=== PATIENT | female | born 1935 | race Caucasian/White ===

== ENCOUNTER 2017-02-04 13:31 | Inpatient (IN) | payer BC, OTHER ==
[~2017-02-04] VITALS: Ht 160 cm; Wt 78.0 kg
[2017-02-04 13:31] VITALS: BP_SYST 162
[2017-02-04 14:41] LABS: BASOPHILS % (AUTO) 0.2 % (0.0-2.0); EOSINOPHILS # (AUTO) 0.1 K/uL (0.0-0.4); EOSINOPHILS % (AUTO) 0.6 % (0.0-4.0); HEMATOCRIT 42.9 % (36-48); HEMOGLOBIN 13.9 g/dL (12.0-16.0); LYMPHOCYTES # (AUTO) 0.9 K/uL (1.0-5.5); LYMPHOCYTES % (AUTO) 7.4 % (20.5-51.5); MEAN CORPUSCULAR HEMOGLOBIN 29 pg (27-31); MEAN CORPUSCULAR HGB CONC 32 % (32-36); MEAN CORPUSCULAR VOLUME 91 fL (79.0-98.0); MONOCYTES # (AUTO) 1.2 K/uL (0.0-1.0); MONOCYTES % (AUTO) 9.7 % (1.7-9.3); NEUTROPHILS # (AUTO) 9.9 K/uL (1.8-7.7); NEUTROPHILS % (AUTO) 82.1 % (40.0-70.0); PLATELET COUNT (AUTO) 141 K/uL (130-430); RED BLOOD CELL COUNT(AUTO) 4.74 MIL/uL (4.2-6.2); RED CELL DISTRIBUTION WIDTH 12.5 % (9.0-15.0); WHITE BLOOD COUNT (AUTO) 12.1 K/uL (4.8-10.8)
[2017-02-04] MEDS ORDERED: KETOROLAC TROMETHAMINE 60 MG/2 ML VIAL IM ONE (14:45)
[2017-02-04 14:52] LABS: ANION GAP 8 (5-15); CALCIUM 9.3 mg/dL (8.4-11.0); CHLORIDE 107 mmol/L (98-107); CREATININE 1.04 mg/dL (0.55-1.30); GLUCOSE 140 mg/dL (70-99); POTASSIUM 3.7 mmol/L (3.5-5.1); SODIUM SERUM 139 mmol/L (136-145); UREA NITROGEN, BLOOD 21 mg/dL (8-21)
[2017-02-04 14:57] LABS: ALANINE AMINOTRANSFERASE 24 U/L (12-78); ASPARTATE AMINOTRANSFERASE 26 U/L (10-37); TOTAL BILIRUBIN 0.6 mg/dL (0.0-1.0); TOTAL PROTEIN, SERUM 7.5 g/dL (6.4-8.3)
[2017-02-04] MEDS ORDERED: KETOROLAC TROMETHAMINE 30 MG VIAL IVP ONE (15:00)
[2017-02-04] MEDS ORDERED: NS 250 ML IV ONE (15:45)
[2017-02-04] MEDS ORDERED: BIMA2.5D6 OP (15:45)
[2017-02-04] MEDS ORDERED: CLOP75TA32 PO (15:45)
[2017-02-04] MEDS ORDERED: LISI-600 PO (15:45)
[2017-02-04] MEDS ORDERED: ATEN50TA PO (15:45)
[2017-02-04] MEDS ORDERED: CYCL5.5D OP (15:48)
[2017-02-04] MEDS ORDERED: ALPHAGANP EACH EYE (15:48)
[2017-02-04] MEDS ORDERED: TIMO5DRO16 OP (15:51)
[2017-02-04] MEDS ORDERED: PROP10DR2 EACH EYE (15:53)
[2017-02-04] MEDS ORDERED: ACETAMINOPHEN 325 MG TABLET PO PRN (16:30)
[2017-02-04] MEDS ORDERED: DOCUSATE SODIUM 100 MG CAPSULE PO PRN (16:30)
[2017-02-04] MEDS ORDERED: ONDANSETRON HCL 4 MG/2 ML VIAL IVP PRN (16:30)
[2017-02-04] MEDS ORDERED: POTASSIUM CHLORIDE 10 MEQ TAB.PRT.SR PO PRN (16:30)
[2017-02-04] MEDS ORDERED: LORazepam 2 MG/ML VIAL IVP PRN (16:30)
[2017-02-04] MEDS ORDERED: MAGNESIUM SULFATE 50 ML IV PRN (16:30)
[2017-02-04] MEDS ORDERED: ZOLPIDEM TARTRATE 5 MG TABLET PO PRN (16:30)
[2017-02-04] MEDS ORDERED: IOHEXOL 350 mgI/mL, 150 ML INFUS..BTL IV ONE (16:33)
[2017-02-04] MEDS ORDERED: *HEPARIN PER PHARMACY XX ONE (17:45)
[2017-02-04 18:00] VITALS: BP_SYST 116
[2017-02-04] MEDS ORDERED: DIA250 PO (18:30)
[2017-02-04 18:36] LABS: BILIRUBIN,URINE NEGATIVE (NEGATIVE); CLARITY/URINE CLEAR (CLEAR); COLOR,URINE YELLOW (YELLOW); GLUCOSE,URINE NEGATIVE (NEGATIVE); KETONES,URINE NEGATIVE (NEGATIVE); LEUKOCYTE ESTERASE ,URINE TRACE (NEGATIVE); NITRITE, URINE NEGATIVE (NEGATIVE); PH,URINE 6.5 (5.0-8.0); PROTEIN URINE NEGATIVE (NEGATIVE); UROBILINOGEN,URINE 0.2 (0.2-1.0)
[2017-02-04 18:37] LABS: BLOOD, URINE TRACE (NEGATIVE)
[2017-02-04 18:48] LABS: BACTERIA,URINE MODERATE /HPF (None Seen)
[2017-02-04 19:00] VITALS: BP_SYST 148
[2017-02-04] MEDS ORDERED: COMMUNICATION ORDER XX ONE (19:15)
[2017-02-04 20:43] LABS: ABG TOTAL HEMOGLOBIN 14.8 G/dL (12.0-18.0); BLOOD GAS BASE EXCESS -2.3 mmol/L (-3.0-3.0); BLOOD GAS PH 7.401 (7.350-7.450); BLOOD O2Hb% 93.9 % (94.0-97.0)
[2017-02-04 20:44] LABS: BLOOD GAS COHb% 0.2 % (0.5-1.5); BLOOD GAS HHB 5.5 % (0.0-6.0)
[2017-02-04] MEDS: cycloSPORINE 0.05%, 0.4 ML OPHTHALMIC EMULSION DROPERETTE OP SCH (21:00)
[2017-02-04] MEDS: TIMOLOL MALEATE 0.25% OPHTHALMIC DROPS 5 ML OP SCH (21:00)
[2017-02-04] MEDS: LATANOPROST 2.5 ML DROPS (XALATAN) OP SCH (21:00)
[2017-02-04] MEDS: BRIMONIDINE TARTRATE 0.2% 5 mL EYE DROPS EACH EYE SCH (21:00)
[2017-02-04] MEDS: ENOXAPARIN SODIUM 80 MG/0.8 ML SYRINGE SUBCUT SCH (22:03)
[2017-02-04] MEDS: SIMETHICONE 80 MG TAB.CHEW PO PRN (22:31)
[2017-02-04 23:53] VITALS: BP_SYST 112
[2017-02-05 03:43] VITALS: BP_SYST 142
[2017-02-05] MEDS: MORPHINE 2 MG/ML INJ. SYRINGE IVP PRN ×3 (04:18→12:58)
[2017-02-05] MEDS: SIMETHICONE 80 MG TAB.CHEW PO PRN (04:21)
[2017-02-05 06:49] LABS: BASOPHILS % (AUTO) 0.2 % (0.0-2.0); EOSINOPHILS % (AUTO) 0.3 % (0.0-4.0); HEMATOCRIT 41.1 % (36-48); HEMOGLOBIN 13.4 g/dL (12.0-16.0); LYMPHOCYTES % (AUTO) 8.1 % (20.5-51.5); MEAN CORPUSCULAR HEMOGLOBIN 30 pg (27-31); MEAN CORPUSCULAR HGB CONC 33 % (32-36); MEAN CORPUSCULAR VOLUME 92 fL (79.0-98.0); MONOCYTES # (AUTO) 1.1 K/uL (0.0-1.0); MONOCYTES % (AUTO) 8.5 % (1.7-9.3); NEUTROPHILS # (AUTO) 10.3 K/uL (1.8-7.7); NEUTROPHILS % (AUTO) 82.9 % (40.0-70.0); PLATELET COUNT (AUTO) 144 K/uL (130-430); RED BLOOD CELL COUNT(AUTO) 4.48 MIL/uL (4.2-6.2); RED CELL DISTRIBUTION WIDTH 12.7 % (9.0-15.0); WHITE BLOOD COUNT (AUTO) 12.4 K/uL (4.8-10.8)
[2017-02-05 07:04] LABS: ANION GAP 11 (5-15); CALCIUM 8.9 mg/dL (8.4-11.0); CHLORIDE 107 mmol/L (98-107); CREATININE 1.08 mg/dL (0.55-1.30); GLUCOSE 131 mg/dL (70-99); POTASSIUM 3.7 mmol/L (3.5-5.1); SODIUM SERUM 139 mmol/L (136-145); UREA NITROGEN, BLOOD 26 mg/dL (8-21)
[2017-02-05 08:00] VITALS: BP_SYST 131
[2017-02-05] MEDS: ENOXAPARIN SODIUM 80 MG/0.8 ML SYRINGE SUBCUT SCH ×2 (08:44→22:11)
[2017-02-05] MEDS: LISINOPRIL 20 MG TABLET PO SCH (08:47)
[2017-02-05] MEDS ORDERED: CLOPIDOGREL BISULFATE 75 MG TABLET PO SCH (09:00)
[2017-02-05] MEDS ORDERED: ENOXAPARIN SODIUM 40 MG/0.4 ML SYRINGE SUBCUT SCH (09:00)
[2017-02-05] MEDS: TIMOLOL MALEATE 0.25% OPHTHALMIC DROPS 5 ML OP SCH ×2 (09:16→20:41)
[2017-02-05] MEDS: BRIMONIDINE TARTRATE 0.2% 5 mL EYE DROPS EACH EYE SCH ×2 (09:21→20:48)
[2017-02-05] MEDS: cycloSPORINE 0.05%, 0.4 ML OPHTHALMIC EMULSION DROPERETTE OP SCH ×2 (09:24→20:59)
[2017-02-05] MEDS: cefTRIAXone 1 GM in D5W 50 ML IV SCH (10:36)
[2017-02-05 10:37] VITALS: BP_SYST 162
[2017-02-05 14:38] VITALS: BP_SYST 115
[2017-02-05] MEDS: IPRATROPIUM/ALBUTEROL SULFATE 3 ML AMPUL.NEB INH SCH ×2 (15:19→21:28)
[2017-02-05] MEDS: MORPHINE 4 MG/ML INJ. SYRINGE IVP PRN ×2 (16:01→20:35)
[2017-02-05 17:04] VITALS: BP_SYST 111
[2017-02-05] MEDS: LATANOPROST 2.5 ML DROPS (XALATAN) OP SCH (20:51)
[2017-02-05] MEDS: SYSTANE ULTRA EYE DROPS OP SCH (21:00)
[2017-02-06 04:00] VITALS: BP_SYST 125
[2017-02-06 07:25] LABS: BASOPHILS % (AUTO) 0.1 % (0.0-2.0); EOSINOPHILS % (AUTO) 0.3 % (0.0-4.0); HEMATOCRIT 38.8 % (36-48); HEMOGLOBIN 12.9 g/dL (12.0-16.0); LYMPHOCYTES # (AUTO) 0.8 K/uL (1.0-5.5); LYMPHOCYTES % (AUTO) 6.3 % (20.5-51.5); MEAN CORPUSCULAR HEMOGLOBIN 30 pg (27-31); MEAN CORPUSCULAR HGB CONC 33 % (32-36); MEAN CORPUSCULAR VOLUME 92 fL (79.0-98.0); MONOCYTES % (AUTO) 8.6 % (1.7-9.3); NEUTROPHILS # (AUTO) 10.1 K/uL (1.8-7.7); NEUTROPHILS % (AUTO) 84.7 % (40.0-70.0); PLATELET COUNT (AUTO) 171 K/uL (130-430); RED BLOOD CELL COUNT(AUTO) 4.24 MIL/uL (4.2-6.2); RED CELL DISTRIBUTION WIDTH 12.7 % (9.0-15.0); WHITE BLOOD COUNT (AUTO) 11.9 K/uL (4.8-10.8)
[2017-02-06] MEDS: IPRATROPIUM/ALBUTEROL SULFATE 3 ML AMPUL.NEB INH SCH ×3 (07:35→21:40)
[2017-02-06 07:53] LABS: ANION GAP 11 (5-15); CALCIUM 9.4 mg/dL (8.4-11.0); CHLORIDE 103 mmol/L (98-107); CREATININE 1.15 mg/dL (0.55-1.30); GLUCOSE 126 mg/dL (70-99); POTASSIUM 3.7 mmol/L (3.5-5.1); SODIUM SERUM 135 mmol/L (136-145); UREA NITROGEN, BLOOD 33 mg/dL (8-21)
[2017-02-06 08:00] VITALS: BP_SYST 150
[2017-02-06] MEDS: ENOXAPARIN SODIUM 80 MG/0.8 ML SYRINGE SUBCUT SCH ×2 (09:15→21:20)
[2017-02-06] MEDS: LISINOPRIL 20 MG TABLET PO SCH (09:16)
[2017-02-06] MEDS: MORPHINE 4 MG/ML INJ. SYRINGE IVP PRN ×3 (09:17→21:19)
[2017-02-06] MEDS: cefTRIAXone 1 GM in D5W 50 ML IV SCH (09:17)
[2017-02-06] MEDS: TIMOLOL MALEATE 0.25% OPHTHALMIC DROPS 5 ML OP SCH ×2 (09:22→21:24)
[2017-02-06] MEDS: BRIMONIDINE TARTRATE 0.2% 5 mL EYE DROPS EACH EYE SCH ×2 (09:23→21:24)
[2017-02-06] MEDS: cycloSPORINE 0.05%, 0.4 ML OPHTHALMIC EMULSION DROPERETTE OP SCH ×2 (09:24→21:39)
[2017-02-06] MEDS: SYSTANE ULTRA EYE DROPS OP SCH ×4 (09:26→21:35)
[2017-02-06 12:42] VITALS: BP_SYST 114
[2017-02-06] MEDS: acetaZOLAMIDE 250 MG TABLET (DIAMOX) PO SCH ×2 (12:49→21:22)
[2017-02-06 14:54] LABS: BILIRUBIN,URINE NEGATIVE (NEGATIVE); CLARITY/URINE HAZY (CLEAR); GLUCOSE,URINE NEGATIVE (NEGATIVE); KETONES,URINE NEGATIVE (NEGATIVE); LEUKOCYTE ESTERASE ,URINE NEGATIVE (NEGATIVE); NITRITE, URINE NEGATIVE (NEGATIVE); PH,URINE 5.5 (5.0-8.0); PROTEIN URINE 1+ (NEGATIVE)
[2017-02-06 14:56] LABS: BLOOD, URINE TRACE (NEGATIVE); COLOR,URINE ORANGE (YELLOW)
[2017-02-06 15:18] LABS: BACTERIA,URINE MANY /HPF (None Seen); MUCUS,URINE None Seen /LPF (None Seen); RBC,URINE 0-3 /HPF (0-3)
[2017-02-06] MEDS: SIMETHICONE 80 MG TAB.CHEW PO PRN (15:59)
[2017-02-06 16:06] VITALS: BP_SYST 136
[2017-02-06] MEDS: LATANOPROST 2.5 ML DROPS (XALATAN) OP SCH ×2 (21:00→21:29)
[2017-02-07] VITALS (8 sets, daily range): BP systolic 107–126
[2017-02-07] MEDS: MORPHINE 4 MG/ML INJ. SYRINGE IVP PRN ×5 (00:43→21:43)
[2017-02-07] MEDS: IPRATROPIUM/ALBUTEROL SULFATE 3 ML AMPUL.NEB INH SCH ×3 (07:34→21:15)
[2017-02-07 07:54] LABS: BASOPHILS % (AUTO) 0.1 % (0.0-2.0); EOSINOPHILS % (AUTO) 0.2 % (0.0-4.0); HEMATOCRIT 41.3 % (36-48); HEMOGLOBIN 13.2 g/dL (12.0-16.0); LYMPHOCYTES # (AUTO) 0.6 K/uL (1.0-5.5); MEAN CORPUSCULAR HEMOGLOBIN 30 pg (27-31); MEAN CORPUSCULAR HGB CONC 32 % (32-36); MEAN CORPUSCULAR VOLUME 93 fL (79.0-98.0); MONOCYTES # (AUTO) 0.9 K/uL (0.0-1.0); MONOCYTES % (AUTO) 9.1 % (1.7-9.3); NEUTROPHILS # (AUTO) 8.5 K/uL (1.8-7.7); NEUTROPHILS % (AUTO) 84.6 % (40.0-70.0); PLATELET COUNT (AUTO) 183 K/uL (130-430); RED BLOOD CELL COUNT(AUTO) 4.45 MIL/uL (4.2-6.2); RED CELL DISTRIBUTION WIDTH 12.8 % (9.0-15.0)
[2017-02-07 08:04] LABS: ANION GAP 9 (5-15); CALCIUM 9.6 mg/dL (8.4-11.0); CHLORIDE 102 mmol/L (98-107); GLUCOSE 124 mg/dL (70-99); SODIUM SERUM 136 mmol/L (136-145); UREA NITROGEN, BLOOD 37 mg/dL (8-21)
[2017-02-07] MEDS: ENOXAPARIN SODIUM 80 MG/0.8 ML SYRINGE SUBCUT SCH ×2 (09:20→20:35)
[2017-02-07] MEDS: cycloSPORINE 0.05%, 0.4 ML OPHTHALMIC EMULSION DROPERETTE OP SCH ×2 (09:21→20:40)
[2017-02-07] MEDS: acetaZOLAMIDE 250 MG TABLET (DIAMOX) PO SCH ×2 (09:21→20:33)
[2017-02-07] MEDS: LISINOPRIL 20 MG TABLET PO SCH (09:21)
[2017-02-07] MEDS: BRIMONIDINE TARTRATE 0.2% 5 mL EYE DROPS EACH EYE SCH ×2 (09:22→20:35)
[2017-02-07] MEDS: TIMOLOL MALEATE 0.25% OPHTHALMIC DROPS 5 ML OP SCH ×2 (09:22→20:35)
[2017-02-07] MEDS: SYSTANE ULTRA EYE DROPS OP SCH ×4 (09:23→20:41)
[2017-02-07] MEDS: cefTRIAXone 1 GM in D5W 50 ML IV SCH (09:31)
[2017-02-07] MEDS: LATANOPROST 2.5 ML DROPS (XALATAN) OP SCH (20:40)
[2017-02-08] VITALS (8 sets, daily range): BP systolic 98–143
[2017-02-08] MEDS: MORPHINE 4 MG/ML INJ. SYRINGE IVP PRN ×4 (06:05→21:35)
[2017-02-08 06:16] LABS: PROTEIN S ACTIVITY 65 % (63-140)
[2017-02-08] MEDS: IPRATROPIUM/ALBUTEROL SULFATE 3 ML AMPUL.NEB INH SCH ×3 (07:30→20:03)
[2017-02-08 07:55] LABS: ANION GAP 7 (5-15); CALCIUM 9.5 mg/dL (8.4-11.0); CHLORIDE 104 mmol/L (98-107); CREATININE 1.08 mg/dL (0.55-1.30); GLUCOSE 111 mg/dL (70-99); POTASSIUM 3.4 mmol/L (3.5-5.1); SODIUM SERUM 136 mmol/L (136-145); UREA NITROGEN, BLOOD 45 mg/dL (8-21)
[2017-02-08 08:03] LABS: BASOPHILS % (AUTO) 0.3 % (0.0-2.0); EOSINOPHILS # (AUTO) 0.2 K/uL (0.0-0.4); EOSINOPHILS % (AUTO) 2.8 % (0.0-4.0); HEMATOCRIT 40.6 % (36-48); HEMOGLOBIN 12.9 g/dL (12.0-16.0); LYMPHOCYTES # (AUTO) 0.8 K/uL (1.0-5.5); LYMPHOCYTES % (AUTO) 8.9 % (20.5-51.5); MEAN CORPUSCULAR HEMOGLOBIN 30 pg (27-31); MEAN CORPUSCULAR HGB CONC 32 % (32-36); MEAN CORPUSCULAR VOLUME 93 fL (79.0-98.0); MONOCYTES # (AUTO) 0.8 K/uL (0.0-1.0); MONOCYTES % (AUTO) 9.8 % (1.7-9.3); NEUTROPHILS # (AUTO) 6.7 K/uL (1.8-7.7); NEUTROPHILS % (AUTO) 78.2 % (40.0-70.0); PLATELET COUNT (AUTO) 240 K/uL (130-430); RED BLOOD CELL COUNT(AUTO) 4.35 MIL/uL (4.2-6.2); RED CELL DISTRIBUTION WIDTH 12.7 % (9.0-15.0); WHITE BLOOD COUNT (AUTO) 8.5 K/uL (4.8-10.8)
[2017-02-08] MEDS: cefTRIAXone 1 GM in D5W 50 ML IV SCH (09:17)
[2017-02-08] MEDS: LISINOPRIL 20 MG TABLET PO SCH (09:17)
[2017-02-08] MEDS: acetaZOLAMIDE 250 MG TABLET (DIAMOX) PO SCH ×2 (09:17→21:36)
[2017-02-08] MEDS: SIMETHICONE 80 MG TAB.CHEW PO PRN (09:17)
[2017-02-08] MEDS: ENOXAPARIN SODIUM 80 MG/0.8 ML SYRINGE SUBCUT SCH ×2 (09:17→21:35)
[2017-02-08] MEDS: TIMOLOL MALEATE 0.25% OPHTHALMIC DROPS 5 ML OP SCH ×2 (09:18→21:36)
[2017-02-08] MEDS: BRIMONIDINE TARTRATE 0.2% 5 mL EYE DROPS EACH EYE SCH ×2 (09:18→21:36)
[2017-02-08] MEDS: SYSTANE ULTRA EYE DROPS OP SCH ×4 (09:29→21:36)
[2017-02-08] MEDS ORDERED: BISACODYL 5 MG TABLET.DR (DULCOLAX) PO ONE (09:30)
[2017-02-08] MEDS ORDERED: MILK OF MAGNESIA 30 ML UDC PO ONE (09:30)
[2017-02-08] MEDS: cycloSPORINE 0.05%, 0.4 ML OPHTHALMIC EMULSION DROPERETTE OP SCH ×2 (11:08→21:00)
[2017-02-08] MEDS: LATANOPROST 2.5 ML DROPS (XALATAN) OP SCH (21:36)
[2017-02-09] MEDS: MORPHINE 4 MG/ML INJ. SYRINGE IVP PRN ×4 (03:43→21:47)
[2017-02-09 03:44] VITALS: BP_SYST 125
[2017-02-09] MEDS: SIMETHICONE 80 MG TAB.CHEW PO PRN (06:02)
[2017-02-09 06:55] LABS: BASOPHILS % (AUTO) 0.3 % (0.0-2.0); EOSINOPHILS # (AUTO) 0.2 K/uL (0.0-0.4); EOSINOPHILS % (AUTO) 2.5 % (0.0-4.0); HEMATOCRIT 39.4 % (36-48); HEMOGLOBIN 12.7 g/dL (12.0-16.0); LYMPHOCYTES # (AUTO) 0.7 K/uL (1.0-5.5); LYMPHOCYTES % (AUTO) 9.8 % (20.5-51.5); MEAN CORPUSCULAR HEMOGLOBIN 30 pg (27-31); MEAN CORPUSCULAR HGB CONC 32 % (32-36); MEAN CORPUSCULAR VOLUME 92 fL (79.0-98.0); MONOCYTES # (AUTO) 0.9 K/uL (0.0-1.0); MONOCYTES % (AUTO) 12.1 % (1.7-9.3); NEUTROPHILS # (AUTO) 5.4 K/uL (1.8-7.7); NEUTROPHILS % (AUTO) 75.3 % (40.0-70.0); PLATELET COUNT (AUTO) 236 K/uL (130-430); RED BLOOD CELL COUNT(AUTO) 4.28 MIL/uL (4.2-6.2); RED CELL DISTRIBUTION WIDTH 12.6 % (9.0-15.0); WHITE BLOOD COUNT (AUTO) 7.2 K/uL (4.8-10.8)
[2017-02-09 07:10] LABS: ANION GAP 7 (5-15); CALCIUM 9.3 mg/dL (8.4-11.0); CHLORIDE 106 mmol/L (98-107); CREATININE 1.02 mg/dL (0.55-1.30); GLUCOSE 117 mg/dL (70-99); POTASSIUM 4.3 mmol/L (3.5-5.1); SODIUM SERUM 138 mmol/L (136-145); UREA NITROGEN, BLOOD 46 mg/dL (8-21)
[2017-02-09 08:00] VITALS: BP_SYST 147
[2017-02-09] MEDS: cefTRIAXone 1 GM in D5W 50 ML IV SCH (08:59)
[2017-02-09] MEDS: LISINOPRIL 20 MG TABLET PO SCH (08:59)
[2017-02-09] MEDS: BRIMONIDINE TARTRATE 0.2% 5 mL EYE DROPS EACH EYE SCH ×2 (09:00→21:49)
[2017-02-09] MEDS: TIMOLOL MALEATE 0.25% OPHTHALMIC DROPS 5 ML OP SCH ×2 (09:00→21:48)
[2017-02-09] MEDS: SYSTANE ULTRA EYE DROPS OP SCH ×4 (09:00→21:49)
[2017-02-09] MEDS: ENOXAPARIN SODIUM 80 MG/0.8 ML SYRINGE SUBCUT SCH (09:00)
[2017-02-09] MEDS: IPRATROPIUM/ALBUTEROL SULFATE 3 ML AMPUL.NEB INH SCH ×3 (09:07→20:52)
[2017-02-09] MEDS: cycloSPORINE 0.05%, 0.4 ML OPHTHALMIC EMULSION DROPERETTE OP SCH ×2 (10:15→21:51)
[2017-02-09] MEDS ORDERED: NITR-85 PO (11:32)
[2017-02-09] MEDS ORDERED: APIX5TAB PO (11:37)
[2017-02-09 12:29] VITALS: BP_SYST 116
[2017-02-09 16:49] VITALS: BP_SYST 141
[2017-02-09 19:40] VITALS: BP_SYST 121
[2017-02-09] MEDS ORDERED: APIXABAN 2.5 MG TABLET PO SCH (21:00)
[2017-02-09] MEDS: LATANOPROST 2.5 ML DROPS (XALATAN) OP SCH ×2 (21:00→21:49)
[2017-02-09] MEDS: APIXABAN 2.5 MG TABLET PO SCH (21:47)
[2017-02-10 00:10] VITALS: BP_SYST 123
[2017-02-10 03:44] VITALS: BP_SYST 133
[2017-02-10] MEDS: SIMETHICONE 80 MG TAB.CHEW PO PRN ×2 (05:04→21:25)
[2017-02-10 06:39] LABS: BASOPHILS % (AUTO) 0.3 % (0.0-2.0); EOSINOPHILS # (AUTO) 0.2 K/uL (0.0-0.4); EOSINOPHILS % (AUTO) 3.1 % (0.0-4.0); HEMOGLOBIN 12.8 g/dL (12.0-16.0); LYMPHOCYTES # (AUTO) 0.7 K/uL (1.0-5.5); LYMPHOCYTES % (AUTO) 10.6 % (20.5-51.5); MEAN CORPUSCULAR HEMOGLOBIN 30 pg (27-31); MEAN CORPUSCULAR HGB CONC 32 % (32-36); MEAN CORPUSCULAR VOLUME 92 fL (79.0-98.0); MONOCYTES # (AUTO) 0.8 K/uL (0.0-1.0); MONOCYTES % (AUTO) 11.6 % (1.7-9.3); NEUTROPHILS # (AUTO) 5.2 K/uL (1.8-7.7); NEUTROPHILS % (AUTO) 74.4 % (40.0-70.0); PLATELET COUNT (AUTO) 279 K/uL (130-430); RED BLOOD CELL COUNT(AUTO) 4.34 MIL/uL (4.2-6.2); WHITE BLOOD COUNT (AUTO) 6.9 K/uL (4.8-10.8)
[2017-02-10 06:59] LABS: ANION GAP 6 (5-15); CALCIUM 9.2 mg/dL (8.4-11.0); CHLORIDE 104 mmol/L (98-107); CREATININE 0.86 mg/dL (0.55-1.30); GLUCOSE 108 mg/dL (70-99); PHOSPHORUS 3.2 mg/dL (2.7-4.5); POTASSIUM 3.5 mmol/L (3.5-5.1); SODIUM SERUM 136 mmol/L (136-145); UREA NITROGEN, BLOOD 32 mg/dL (8-21)
[2017-02-10] MEDS: IPRATROPIUM/ALBUTEROL SULFATE 3 ML AMPUL.NEB INH SCH ×3 (07:34→22:30)
[2017-02-10] MEDS: SYSTANE ULTRA EYE DROPS OP SCH ×3 (09:00→21:28)
[2017-02-10] MEDS: TIMOLOL MALEATE 0.25% OPHTHALMIC DROPS 5 ML OP SCH ×2 (09:00→22:17)
[2017-02-10] MEDS: cycloSPORINE 0.05%, 0.4 ML OPHTHALMIC EMULSION DROPERETTE OP SCH ×2 (09:00→21:26)
[2017-02-10] MEDS: BRIMONIDINE TARTRATE 0.2% 5 mL EYE DROPS EACH EYE SCH ×2 (09:00→22:17)
[2017-02-10] MEDS: APIXABAN 2.5 MG TABLET PO SCH ×2 (10:43→21:24)
[2017-02-10] MEDS: LISINOPRIL 20 MG TABLET PO SCH (10:46)
[2017-02-10] MEDS: cefTRIAXone 1 GM in D5W 50 ML IV SCH (10:48)
[2017-02-10] MEDS ORDERED: acetaZOLAMIDE 250 MG TABLET (DIAMOX) PO ONE (12:00)
[2017-02-10] MEDS: HYDROcodone/ACETAMIN 10-325 MG TAB PO PRN ×2 (12:23→22:39)
[2017-02-10 12:55] VITALS: BP_SYST 121
[2017-02-10] MEDS ORDERED: HYDROcodone/ACETAMIN 10-325 MG TAB PO PRN (17:00)
[2017-02-10 17:55] VITALS: BP_SYST 120
[2017-02-10 19:40] VITALS: BP_SYST 129
[2017-02-10] MEDS ORDERED: acetaZOLAMIDE 250 MG TABLET (DIAMOX) PO SCH (21:00)
[2017-02-10] MEDS: LATANOPROST 2.5 ML DROPS (XALATAN) OP SCH (21:00)
[2017-02-10] MEDS: acetaZOLAMIDE 250 MG TABLET (DIAMOX) PO SCH (21:25)
[2017-02-11] VITALS (7 sets, daily range): BP systolic 105–149
[2017-02-11 07:18] LABS: BASOPHILS % (AUTO) 0.3 % (0.0-2.0); EOSINOPHILS # (AUTO) 0.2 K/uL (0.0-0.4); EOSINOPHILS % (AUTO) 2.8 % (0.0-4.0); HEMATOCRIT 39.9 % (36-48); LYMPHOCYTES # (AUTO) 0.7 K/uL (1.0-5.5); LYMPHOCYTES % (AUTO) 10.8 % (20.5-51.5); MEAN CORPUSCULAR HEMOGLOBIN 30 pg (27-31); MEAN CORPUSCULAR HGB CONC 33 % (32-36); MEAN CORPUSCULAR VOLUME 92 fL (79.0-98.0); MONOCYTES # (AUTO) 0.8 K/uL (0.0-1.0); MONOCYTES % (AUTO) 11.1 % (1.7-9.3); NEUTROPHILS # (AUTO) 5.1 K/uL (1.8-7.7); PLATELET COUNT (AUTO) 282 K/uL (130-430); RED BLOOD CELL COUNT(AUTO) 4.34 MIL/uL (4.2-6.2); RED CELL DISTRIBUTION WIDTH 12.2 % (9.0-15.0); WHITE BLOOD COUNT (AUTO) 6.8 K/uL (4.8-10.8)
[2017-02-11 07:24] LABS: ALBUMIN 1.9 g/dL (3.4-4.8); ANION GAP 6 (5-15); CALCIUM 9.1 mg/dL (8.4-11.0); CHLORIDE 106 mmol/L (98-107); CREATININE 0.73 mg/dL (0.55-1.30); GLUCOSE 104 mg/dL (70-99); PHOSPHORUS 2.9 mg/dL (2.7-4.5); POTASSIUM 3.5 mmol/L (3.5-5.1); SODIUM SERUM 137 mmol/L (136-145); UREA NITROGEN, BLOOD 25 mg/dL (8-21)
[2017-02-11] MEDS: IPRATROPIUM/ALBUTEROL SULFATE 3 ML AMPUL.NEB INH SCH ×3 (07:50→21:11)
[2017-02-11] MEDS: APIXABAN 2.5 MG TABLET PO SCH ×2 (08:22→21:06)
[2017-02-11] MEDS: LISINOPRIL 20 MG TABLET PO SCH (08:23)
[2017-02-11] MEDS: cycloSPORINE 0.05%, 0.4 ML OPHTHALMIC EMULSION DROPERETTE OP SCH ×2 (08:23→21:09)
[2017-02-11] MEDS: cefTRIAXone 1 GM in D5W 50 ML IV SCH (08:23)
[2017-02-11] MEDS: TIMOLOL MALEATE 0.25% OPHTHALMIC DROPS 5 ML OP SCH ×2 (08:24→21:08)
[2017-02-11] MEDS: BRIMONIDINE TARTRATE 0.2% 5 mL EYE DROPS EACH EYE SCH ×2 (08:24→21:08)
[2017-02-11] MEDS: acetaZOLAMIDE 250 MG TABLET (DIAMOX) PO SCH ×2 (08:25→21:07)
[2017-02-11] MEDS: SYSTANE ULTRA EYE DROPS OP SCH ×4 (08:54→21:09)
[2017-02-11] MEDS: HYDROcodone/ACETAMIN 10-325 MG TAB PO PRN ×2 (12:49→22:53)
[2017-02-11] MEDS: LATANOPROST 2.5 ML DROPS (XALATAN) OP SCH (21:08)
[2017-02-12 00:44] VITALS: BP_SYST 131
[2017-02-12 04:31] VITALS: BP_SYST 132
[2017-02-12] MEDS: IPRATROPIUM/ALBUTEROL SULFATE 3 ML AMPUL.NEB INH SCH (07:33)
[2017-02-12 07:44] LABS: ANION GAP 6 (5-15); CALCIUM 9.1 mg/dL (8.4-11.0); CHLORIDE 108 mmol/L (98-107); CREATININE 0.78 mg/dL (0.55-1.30); GLUCOSE 105 mg/dL (70-99); PHOSPHORUS 3.3 mg/dL (2.7-4.5); POTASSIUM 3.6 mmol/L (3.5-5.1); SODIUM SERUM 139 mmol/L (136-145); UREA NITROGEN, BLOOD 22 mg/dL (8-21)
[2017-02-12 07:47] LABS: BASOPHILS % (AUTO) 0.4 % (0.0-2.0); EOSINOPHILS # (AUTO) 0.2 K/uL (0.0-0.4); HEMATOCRIT 39.2 % (36-48); HEMOGLOBIN 12.7 g/dL (12.0-16.0); LYMPHOCYTES # (AUTO) 0.8 K/uL (1.0-5.5); LYMPHOCYTES % (AUTO) 13.4 % (20.5-51.5); MEAN CORPUSCULAR HEMOGLOBIN 30 pg (27-31); MEAN CORPUSCULAR HGB CONC 33 % (32-36); MEAN CORPUSCULAR VOLUME 92 fL (79.0-98.0); MONOCYTES # (AUTO) 0.7 K/uL (0.0-1.0); MONOCYTES % (AUTO) 11.2 % (1.7-9.3); NEUTROPHILS # (AUTO) 4.2 K/uL (1.8-7.7); PLATELET COUNT (AUTO) 296 K/uL (130-430); RED BLOOD CELL COUNT(AUTO) 4.26 MIL/uL (4.2-6.2); RED CELL DISTRIBUTION WIDTH 12.6 % (9.0-15.0); WHITE BLOOD COUNT (AUTO) 5.9 K/uL (4.8-10.8)
[2017-02-12 08:17] VITALS: BP_SYST 145
[2017-02-12] MEDS: LISINOPRIL 20 MG TABLET PO SCH (10:39)
[2017-02-12] MEDS: acetaZOLAMIDE 250 MG TABLET (DIAMOX) PO SCH (10:39)
[2017-02-12] MEDS: BRIMONIDINE TARTRATE 0.2% 5 mL EYE DROPS EACH EYE SCH (10:41)
[2017-02-12] MEDS: TIMOLOL MALEATE 0.25% OPHTHALMIC DROPS 5 ML OP SCH (10:42)
[2017-02-12] MEDS: cycloSPORINE 0.05%, 0.4 ML OPHTHALMIC EMULSION DROPERETTE OP SCH (10:43)
[2017-02-12] MEDS: SYSTANE ULTRA EYE DROPS OP SCH (10:44)
[2017-02-12] MEDS: APIXABAN 2.5 MG TABLET PO SCH (10:49)
[2017-02-12] MEDS: cefTRIAXone 1 GM in D5W 50 ML IV SCH (11:16)
[2017-02-12] MEDS ORDERED: ACET-2165 PO (11:37)
[2017-02-12] MEDS ORDERED: APIX5TAB PO ×3 (11:37→11:47)
[2017-02-12] MEDS ORDERED: IBUP-1517 PO (11:37)
[2017-02-12 12:44] VITALS: BP_SYST 140
[2017-02-12 13:30] VITALS: BP_SYST 145
[2017-02-12 16:17] VITALS: BP_SYST 142
== END 2017-02-12 16:25 | disposition home or self-care (01) | DRG 175 ==
LOC: SED 13:31 → STU 15:38 → SMU 02-09 12:44
PROVIDERS: ADMIT General Practice; ATTEND General Practice
DX: I26.99 Other pulmonary embolism without acute cor pulmonale (principal); E43 Unspecified severe protein-calorie malnutrition; A41.9 Sepsis, unspecified organism; N39.0 Urinary tract infection, site not specified; J98.11 Atelectasis; I73.9 Peripheral vascular disease, unspecified; I10 Essential (primary) hypertension; I25.10 Atherosclerotic heart disease of native coronary artery without angina pectoris; H54.0 Blindness, both eyes; I67.9 Cerebrovascular disease, unspecified; E66.9 Obesity, unspecified; Z96.651 Presence of right artificial knee joint; R07.81 Pleurodynia; Z98.891 History of uterine scar from previous surgery; Z80.6 Family history of leukemia; Z87.891 Personal history of nicotine dependence; Z86.010 Personal history of colon polyps; Z98.41 Cataract extraction status, right eye; Z98.42 Cataract extraction status, left eye; Z88.0 Allergy status to penicillin; Z91.048 Other nonmedicinal substance allergy status; Z68.30 Body mass index [BMI] 30.0-30.9, adult; Z79.01 Long term (current) use of anticoagulants; Z79.899 Other long term (current) drug therapy
CPT/HCPCS: 36415; 36600; 71010; 71275; 80048; 80053; 81000-TC; 82040-TC; 82803-TC; 83605; 83735-TC; 83880; 83891; 83894; 83898; 83912; 84100-TC; 84484; 85025; 85306; 87086; 93005; 93306; 94010; 94640; 94760; 96361; 96374; 97110-GP; 97116-GP; 97530-GP; 99291; J0696; J1650; J1885; J2270; J7040; J7050; J7060; Q9967